=== PATIENT | female | born 1955 | race Caucasian/White ===

== ENCOUNTER → 2017-02-23 | Outpatient (CLI) | payer BC ==
--- NOTE | 2017-02-23 15:12 | BD ---
EXAMINATION TYPE: MG DEXA axial skeleton. DATE OF EXAM: 02/23/2017 COMPARISON: 02/19/2015 DEXA bone scan CLINICAL HISTORY: Postmenopausal female Height: 66 IN Weight: 224 LBS FRAX RISK QUESTIONS: Alcohol (3 or more units per day): NO Family History (Parent hip fracture): NO Glucocorticoids (More than 3mos): NO (Ex: prednisone, prednisolone, methylprednisolone, dexamethasone, and hydrocortisone). History of Fracture in Adulthood: NO Secondary Osteoporosis: 1. Type 1 Diabetes: NO 2. Hyperthyroidism: NO 3. Menopause before 45: NO 4. Malnutrition: NO 5. Chronic liver disease: NO Rheumatoid Arthritis: NO Current Tobacco Use: NO RISK FACTORS HISTORY OF: Family History of Osteoporosis: GRANDMOTHER (M) Active: YES Postmenopausal woman: AGE 46 MEDICATIONS: Additional Medications: VIT D, EXAM MEASUREMENTS: Bone mineral densitometry was performed using the [employer] System. Bone mineral density as measured about the Lumbar spine is: ----- L1-L4(G/cm2): 1.071 T Score Values are as follows: ----- L2: -1.0 ----- L3: -0.3 ----- L4: -1.3 ----- L1-L4: -0.9 Bone mineral density has: Increased 0.2% since study of: 02/19/2015 Bone mineral density about the R hip (g/cm2): 0.921 Bone mineral density about the L hip (g/cm2): 0.840 T Score values are as follows: -----R Neck: -0.8 -----L Neck: -1.4 -----R Total: -0.5 -----L Total: -0.8 Bone mineral density has: Increased 2.4% since study of: 02/19/2015 IMPRESSION: Osteopenia (T Score between -2.5 and -1 as noted by T score values at the femoral neck level in the l eft hip remains present. Bone density fairly stable from prior. There remains slightly increased risk of fracture and the patient may be considered for treatment. Re-Screen 2-5 years. NOTE: T-SCORE=SD OF THE YOUNG ADULT MEAN.
--- NOTE | 2017-02-24 13:49 | MM ---
Reason for exam: screening (asymptomatic). Last mammogram was performed 1 year ago. History: Patient is postmenopausal and has history of other cancer at age 26. Family history of breast cancer in sister at age 43 and breast cancer in maternal grandmother at age 44. Benign left mammotome panel of the left breast, November 19, 2011. Physical Findings: A clinical breast exam by your physician is recommended on an annual basis and results should be correlated with mammographic findings. MG 3D Screening Mammo W/Cad Bilateral CC and MLO view(s) were taken. Prior study comparison: February 23, 2016, bilateral MG 3d screening mammo w/cad. February 19, 2015, bilateral MG screening mammo w CAD. The breast tissue is heterogeneously dense. This may lower the sensitivity of mammography. No suspicious abnormality. ASSESSMENT: Negative, BI-RAD 1 RECOMMENDATION: Routine screening mammogram of both breasts in 1 year.
== END | disposition home or self-care (01) ==
LOC: RADMAMWWP 13:54
PROVIDERS: ATTEND Family Medicine
DX: Z12.31 Encounter for screening mammogram for malignant neoplasm of breast (principal); M85.852 Other specified disorders of bone density and structure, left thigh; Z78.0 Asymptomatic menopausal state
CPT/HCPCS: 77080; 77063; G0202

== ENCOUNTER 2017-11-20 11:54 | Emergency (ER) | payer BC ==
[2017-11-20] MEDS ORDERED: ONDANSETRON 4 MG/2 ML VIAL IVP STA (12:12)
[2017-11-20] MEDS ORDERED: SODIUM CHLORIDE 0.9% 1,000 ML IV STA (12:12)
[2017-11-20] MEDS ORDERED: ACETAMINOPHEN IV (For NPO) 1,000 MG in EMPTY BAG 1 BAG IVPB STA (12:14)
[2017-11-20] MEDS ORDERED: FAMOTIDINE 20 MG/2 ML VIAL IV STA (12:14)
--- NOTE | 2017-11-20 12:15 | ED ---
General Adult HPI - General Chief complaint: Abdominal Pain Stated complaint: Abd Pain Time Seen by Provider: 11/20/17 12:04 Source: patient, RN notes reviewed Mode of arrival: ambulatory Limitations: no limitations - History of Present Illness Initial comments: Patient 62-year-old female presented to the emergency room today with a chief complaint of abdominal pain and diarrhea over the last 4 days. Patient does admit that she seems looser stools. No appearance earlier today. Patient does admit to feeling some epigastric and upper abdomen pain. Denies that makes it better or worse. Does admit that she's had symptoms of nausea. Patient denies any other complaints. Patient denies any recent fever, chills, shortness of breath, chest pain, back pain, abdominal pain, vomiting, numbness or tingling, headaches or visual changes, or any other complaints. - Related Data Previous Rx's Medication Instructions Recorded Ondansetron Odt [Zofran ODT] 4 mg PO Q8HR PRN #20 tab 11/20/17 Allergies Allergy/AdvReac Type Severity Reaction Status Date / Time pseudoephedrine Allergy Unknown Verified 11/20/17 12:02 Review of Systems ROS Statement: Those systems with pertinent positive or pertinent negative responses have been documented in the HPI. ROS Other: All systems not noted in ROS Statement are negative. Past Medical History Past Medical History: No Reported History History of Any Multi-Drug Resistant Organisms: None Reported Past Surgical History: Hysterectomy, Orthopedic Surgery, Tubal Ligation Past Psychological History: Depression Smoking Status: Never smoker Past Alcohol Use History: Occasional Past Drug Use History: None Reported General Exam - General Exam Comments Initial Comments: General: The patient is awake and alert, in no distress, and does not appear acutely ill. Eye: Pupils are equal, round and reactive to light, extra-ocular movements are intact. No nystagmus. There is normal conjunctiva bilaterally. No signs of icterus. Ears, nose, mouth and throat: There are moist mucous membranes and no oral lesions. Neck: The neck is supple, there is no tenderness or JVD. Cardiovascular: There is a regular rate and rhythm. No murmur, rub or gallop is appreciated. Respiratory: Lungs are clear to auscultation, respirations are non-labored, breath sounds are equal. No wheezes, stridor, rales, or rhonchi. Gastrointestinal: Abdomen soft on palpation. Patient does have tenderness in the upper quadrants and epigastric area. No rebound, guarding or CVA tenderness. Musculoskeletal: Normal ROM, no tenderness. Sensation intact. Neurological: A&O x 3. CN II-XII intact, There are no obvious motor or sensory deficits. Coordination appears grossly intact. Speech is normal. Skin: Skin is warm and dry and no rashes or lesions are noted. Psychiatric: Cooperative, appropriate mood & affect, normal judgment. Limitations: no limitations Course Vital Signs 11/20/17 11/20/17 11:59 14:10 Temperature 98.4 F Pulse Rate 77 60 Respiratory 16 18 Rate Blood Pressure 160/94 156/78 O2 Sat by Pulse 97 97 Oximetry EKG Findings - EKG Comments: EKG Findings:: EKG performed at 1446: Shows normal sinus rhythm at 62 beats per minute. MO interval 154. QRS is 78. QT/QTc 404/410. No acute changes. Medical Decision Making - Medical Decision Making Patient's labs been reviewed. Patient's resting comfortably. Patient's symptoms started 4 days ago. She does note improvement after Pepcid, Zofran here in the emergency room. She was given GI cocktail which is progressive her symptoms. She is resting comfortably at this time. Patient is advised follow- up with her GI specialist and also family physician. Advised return here to emergency room if any symptoms increase worsen. She was advised continue with her proton accident Pepcid. Will be given Zofran to go home with. - Lab Data Result diagrams: 11/20/17 12:20 11/20/17 12:20 Lab Results 11/20/17 11/20/17 11/20/17 Range/Units 12:20 12:20 12:20 WBC 5.0 (3.8-10.6) k/uL RBC 5.13 (3.80-5.40) m/uL Hgb 14.5 (11.4-16.0) gm/dL Hct 43.6 (34.0-46.0) % MCV 84.9 (80.0-100.0) fL MCH 28.3 (25.0-35.0) pg MCHC 33.4 (31.0-37.0) g/dL RDW 13.5 (11.5-15.5) % Plt Count 239 (150-450) k/uL Neutrophils % 79 % Lymphocytes % 16 % Monocytes % 4 % Eosinophils % 0 % Basophils % 1 % Neutrophils # 3.9 (1.3-7.7) k/uL Lymphocytes # 0.8 L (1.0-4.8) k/uL Monocytes # 0.2 (0-1.0) k/uL Eosinophils # 0.0 (0-0.7) k/uL Basophils # 0.0 (0-0.2) k/uL Sodium 142 (137-145) mmol/L Potassium 3.9 (3.5-5.1) mmol/L Chloride 109 H (98-107) mmol/L Carbon Dioxide 24 (22-30) mmol/L Anion Gap 9 mmol/L BUN 10 (7-17) mg/dL Creatinine 0.56 (0.52-1.04) mg/dL Est GFR (CKD-EPI)AfAm >90 (>60 ml/min/1.73 sqM) Est GFR (CKD-EPI)NonAf >90 (>60 ml/min/1.73 sqM) Glucose 104 H (74-99) mg/dL Calcium 9.8 (8.4-10.2) mg/dL Total Bilirubin 0.5 (0.2-1.3) mg/dL AST 19 (14-36) U/L ALT 30 (9-52) U/L Alkaline Phosphatase 80 (38-126) U/L Total Creatine Kinase (30-135) U/L CK-MB (CK-2) (0.0-2.4) ng/mL CK-MB (CK-2) Rel Index Troponin I (0.000-0.034) ng/mL Total Protein 6.7 (6.3-8.2) g/dL Albumin 4.5 (3.5-5.0) g/dL Amylase 45 (30-110) U/L Lipase 53 (23-300) U/L Urine Color Colorless Urine Appearance Clear (Clear) Urine pH 6.0 (5.0-8.0) Ur Specific [place] 1.002 (1.001-1.035) Urine Protein Negative (Negative) Urine Glucose (UA) Negative (Negative) Urine Ketones Negative (Negative) Urine Blood Negative (Negative) Urine Nitrite Negative (Negative) Urine Bilirubin Negative (Negative) Urine Urobilinogen <2.0 (<2.0) mg/dL Ur Leukocyte Esterase Negative (Negative) 11/20/17 Range/Units 12:20 WBC (3.8-10.6) k/uL RBC (3.80-5.40) m/uL Hgb (11.4-16.0) gm/dL Hct (34.0-46.0) % MCV (80.0-100.0) fL MCH (25.0-35.0) pg MCHC (31.0-37.0) g/dL RDW (11.5-15.5) % Plt Count (150-450) k/uL Neutrophils % % Lymphocytes % % Monocytes % % Eosinophils % % Basophils % % Neutrophils # (1.3-7.7) k/uL Lymphocytes # (1.0-4.8) k/uL Monocytes # (0-1.0) k/uL Eosinophils # (0-0.7) k/uL Basophils # (0-0.2) k/uL Sodium (137-145) mmol/L Potassium (3.5-5.1) mmol/L Chloride (98-107) mmol/L Carbon Dioxide (22-30) mmol/L Anion Gap mmol/L BUN (7-17) mg/dL Creatinine (0.52-1.04) mg/dL Est GFR (CKD-EPI)AfAm (>60 ml/min/1.73 sqM) Est GFR (CKD-EPI)NonAf (>60 ml/min/1.73 sqM) Glucose (74-99) mg/dL Calcium (8.4-10.2) mg/dL Total Bilirubin (0.2-1.3) mg/dL AST (14-36) U/L ALT (9-52) U/L Alkaline Phosphatase (38-126) U/L Total Creatine Kinase 34 (30-135) U/L CK-MB (CK-2) 0.6 (0.0-2.4) ng/mL CK-MB (CK-2) Rel Index 1.8 Troponin I <0.012 (0.000-0.034) ng/mL Total Protein (6.3-8.2) g/dL Albumin (3.5-5.0) g/dL Amylase (30-110) U/L Lipase (23-300) U/L Urine Color Urine Appearance (Clear) Urine pH (5.0-8.0) Ur Specific [place] (1.001-1.035) Urine Protein (Negative) Urine Glucose (UA) (Negative) Urine Ketones (Negative) Urine Blood (Negative) Urine Nitrite (Negative) Urine Bilirubin (Negative) Urine Urobilinogen (<2.0) mg/dL Ur Leukocyte Esterase (Negative) Disposition Clinical Impression: Abdominal pain Disposition: HOME SELF-CARE Condition: Good Instructions: Abdominal Pain (ED) Additional Instructions: Please follow-up the family doctor and GI specialist over the next 2-5 days. Please use medications as discussed return here to emergency room if any symptoms increase or worsen. Prescriptions: Ondansetron Odt [Zofran ODT] 4 mg PO Q8HR PRN #20 tab PRN Reason: Nausea Is patient prescribed a controlled substance at d/c from ED?: No Referrals: Charanjit New MD [Primary Care Provider] - 1-2 days Kacy Montgomery MD [STAFF PHYSICIAN] - 1-2 days Time of Disposition: 15:15
[2017-11-20 12:45] LABS: ALT 30 U/L (9-52); AST 19 U/L (14-36); Albumin 4.5 g/dL (3.5-5.0); Alkaline Phosphatase 80 U/L (38-126); Amylase 45 U/L (30-110); Anion Gap 9 mmol/L; Appearance,Urine Clear (Clear); Bilirubin,Urine Negative (Negative); Blood Urea Nitrogen 10 mg/dL (7-17); Blood,Urine Negative (Negative); Calcium 9.8 mg/dL (8.4-10.2); Carbon Dioxide 24 mmol/L (22-30); Chloride 109 mmol/L (98-107); Color,Urine Colorless; Glucose 104 mg/dL (74-99); Glucose,Urine (UA) Negative (Negative); Ketones,Urine Negative (Negative); Leukocyte Esterase,Urine Negative (Negative); Lipase 53 U/L (23-300); Nitrite,Urine Negative (Negative); Potassium 3.9 mmol/L (3.5-5.1); Protein,Urine Negative (Negative); Sodium 142 mmol/L (137-145); Specific Gravity,Urine 1.002 (1.001-1.035); Total Bilirubin 0.5 mg/dL (0.2-1.3); Total Protein 6.7 g/dL (6.3-8.2); Urobilinogen,Urine <2.0 mg/dL (<2.0)
[2017-11-20 12:51] LABS: Basophils % (A) 1 %; Eosinophils % (A) 0 %; HCT 43.6 % (34.0-46.0); HGB 14.5 gm/dL (11.4-16.0); Lymphocytes # (A) 0.8 k/uL (1.0-4.8); Lymphocytes % (A) 16 %; MCH 28.3 pg (25.0-35.0); MCHC 33.4 g/dL (31.0-37.0); MCV 84.9 fL (80.0-100.0); Mean Platelet Volume 6.8; Monocytes # (A) 0.2 k/uL (0-1.0); Monocytes % (A) 4 %; Neutrophils # (A) 3.9 k/uL (1.3-7.7); Neutrophils % (A) 79 %; Platelet Count 239 k/uL (150-450); RBC 5.13 m/uL (3.80-5.40); RDW 13.5 % (11.5-15.5)
--- NOTE | 2017-11-20 13:31 | US ---
EXAMINATION TYPE: US abdomen limited DATE OF EXAM: 11/20/2017 COMPARISON: Previous study dated 12/03/2015. CLINICAL HISTORY: Pain. Epigastric pain and nausea x 4 days EXAM MEASUREMENTS: Liver Length: 13.3 cm Gallbladder Wall: 0.2 cm CBD: 0.4 cm Right Kidney: 9.7 x 5.2 x 4.8 cm Pancreas: visualized portions wnl, limited by overlying midline bowel gas Liver: wnl Gallbladder: wnl Evidence for sonographic Espinosa's sign: yes CBD: visualized portions wnl, limited by overlying bowel gas Right Kidney: wnl Limited views of the pancreas are unremarkable. The liver is normal in size without biliary dilatation. The gallbladder is unremarkable without cholelithiasis. The gallbladder wall measures 2 mm. The dista l common hepatic duct measures 4 mm. There is right upper quadrant tenderness. The right kidney is normal. IMPRESSION: RIGHT UPPER QUADRANT TENDERNESS WITHOUT OTHER DEFINITE ABNORMALITY.
[2017-11-20 13:39] LABS: Creatine Kinase 34 U/L (30-135)
[2017-11-20 13:52] LABS: Creatine Kinase MB 0.6 ng/mL (0.0-2.4); Troponin I <0.012 ng/mL (0.000-0.034)
[2017-11-20] MEDS ORDERED: MAG HYDROX/AL HYDROX/SIMETH 30 ML, HYOSCYAMINE ELIXIR 10 ML, CIMETIDINE HCL 300 MG, LID... PO STA ×4 (14:00)
[2017-11-20] MEDS ORDERED: KETOROLAC 30 MG/ML 1 ML VIAL IVP STA (15:28)
[2017-11-20 15:31] VITALS: BP 133/76; PULSE 55; RESP 18; TEMP 98
== END 2017-11-20 15:39 | disposition home or self-care (01) ==
LOC: EC 11:54
DX: R10.13 Epigastric pain (principal); R19.7 Diarrhea, unspecified; R11.0 Nausea; Z90.710 Acquired absence of both cervix and uterus; Z98.51 Tubal ligation status; Z88.8 Allergy status to other drugs, medicaments and biological substances
CPT/HCPCS: 36415; 93005; 80053; 82150; 82550; 82553; 83690; 84484; 85025; 81003; 76705; 99284; 96374; 96375 ×3; 96361 ×3; J2405; J1885; J0131

== ENCOUNTER 2017-11-22 12:07 | Emergency (ER) | payer BC ==
[2017-11-22] MEDS ORDERED: MAG HYDROX/AL HYDROX/SIMETH 30 ML, HYOSCYAMINE ELIXIR 10 ML, CIMETIDINE HCL 300 MG, LID... PO STA ×4 (12:36)
--- NOTE | 2017-11-22 12:38 | ED ---
General Adult HPI - General Chief complaint: Abdominal Pain Stated complaint: upper abdominal pain/burning Time Seen by Provider: 11/22/17 12:24 Source: patient, RN notes reviewed Mode of arrival: ambulatory Limitations: no limitations - History of Present Illness Initial comments: Patient's a 62-year-old female presented to the emergency room today with a chief complaint of abdominal pain. Patient was seen here in the emergency room recently for the same complaint this 2 days ago. Patient did have labs and an ultrasound obtained. Patient states that she felt better after receiving a GI cocktail here in the emergency room. She states she went home and for the past few days she's been taking comments. She states she was doing well until when she woke up this morning she had increased pain to the epigastric area. Patient does admit to some radiation into the chest. Patient denies any other complaints or symptoms. She states these are the same symptoms she is experiencing 2 days ago. Patient denies any recent fever, chills, shortness of breath, chest pain, back pain, abdominal pain, nausea or vomiting, numbness or tingling, headaches or visual changes, or any other complaints. - Related Data Home Medications Medication Instructions Recorded Confirmed Diazepam [Valium] 5 mg PO DAILY PRN 11/22/17 11/22/17 Famotidine [Pepcid AC] 10 mg PO DAILY PRN 11/22/17 11/22/17 Pantoprazole Sodium [Protonix] 40 mg PO DAILY PRN 11/22/17 11/22/17 Previous Rx's Medication Instructions Recorded Ondansetron Odt [Zofran ODT] 4 mg PO Q8HR PRN #20 tab 11/20/17 ALPRAZolam [Xanax] 0.5 mg PO BID PRN #10 tablet 11/22/17 Sucralfate [Carafate] 1 gm PO BID #10 tablet 11/22/17 Allergies Allergy/AdvReac Type Severity Reaction Status Date / Time pseudoephedrine Allergy Unknown Verified 11/22/17 12:27 Review of Systems ROS Statement: Those systems with pertinent positive or pertinent negative responses have been documented in the HPI. ROS Other: All systems not noted in ROS Statement are negative. Past Medical History Past Medical History: GERD/Reflux Additional Past Medical History / Comment(s): sliding hiatal hernia History of Any Multi-Drug Resistant Organisms: None Reported Past Surgical History: Hysterectomy, Orthopedic Surgery, Tubal Ligation Past Psychological History: Depression Smoking Status: Never smoker Past Alcohol Use History: Occasional Past Drug Use History: None Reported General Exam - General Exam Comments Initial Comments: General: The patient is awake and alert, in no distress, and does not appear acutely ill. Eye: Pupils are equal, round and reactive to light, extra-ocular movements are intact. No nystagmus. There is normal conjunctiva bilaterally. No signs of icterus. Ears, nose, mouth and throat: There are moist mucous membranes and no oral lesions. Neck: The neck is supple, there is no tenderness or JVD. Cardiovascular: There is a regular rate and rhythm. No murmur, rub or gallop is appreciated. Respiratory: Lungs are clear to auscultation, respirations are non-labored, breath sounds are equal. No wheezes, stridor, rales, or rhonchi. Gastrointestinal: Abdomen soft on palpation. Patient does have tenderness epigastric and right upper quadrants. No rebound, guarding, or CVA tenderness. Musculoskeletal: Normal ROM, no tenderness. Strength 5/5. Sensation intact. Pulses equal bilaterally 2+. Neurological: A&O x 3. CN II-XII intact, There are no obvious motor or sensory deficits. Coordination appears grossly intact. Speech is normal. Skin: Skin is warm and dry and no rashes or lesions are noted. Psychiatric: Cooperative, appropriate mood & affect, normal judgment. Limitations: no limitations Course Vital Signs 11/22/17 12:18 Temperature 98.4 F Pulse Rate 75 Respiratory 16 Rate O2 Sat by Pulse 95 Oximetry EKG Findings - EKG Comments: EKG Findings:: EKG performed at 1317: Shows normal sinus rhythm at 69 bpm. ND interval 152. QRS 76. QT/QTC 380/407. No acute changes compared to previous EKG on 11/20/2017. Medical Decision Making - Medical Decision Making Case discussed in detail with attending physician Dr. Bethea. Patient reexamined at this time shows no signs of distress resting comfortably. Patient's previous labs from 2 days ago are reviewed and were negative for any abnormality. EKG is compared to previous EKG showing no changes. Patient has pain in epigastric and is tender in this area with some burning sensation going up. Patient did have some relief with a GI cocktail and given Tylenol Pepcid here in emergency room. Patient does have history anxiety is requesting medication due to increased anxiety due to these pains per se she has a appointment with her family doctor in 2 days. Patient will be given a short prescription. She is advised to follow-up with family doctor over the next 2 days return to emergency room symptoms increase worsen. Disposition Clinical Impression: Abdominal pain Disposition: HOME SELF-CARE Condition: Good Instructions: Abdominal Pain (ED) Additional Instructions: Please use medication as discussed. Please follow-up with family doctor in the next 2 days. Please return to emergency room if the symptoms increase or worsen or for any other concerns. Prescriptions: ALPRAZolam [Xanax] 0.5 mg PO BID PRN #10 tablet PRN Reason: Anxiety Sucralfate [Carafate] 1 gm PO BID #10 tablet Is patient prescribed a controlled substance at d/c from ED?: No Referrals: Charanjit New MD [Primary Care Provider] - 1-2 days Time of Disposition: 13:52
[2017-11-22] MEDS ORDERED: FAMOTIDINE 20 MG TAB PO STA (13:46)
[2017-11-22] MEDS ORDERED: ACETAMINOPHEN TAB 500 MG TAB PO STA (13:46)
[2017-11-22] MEDS ORDERED: ALPRAZolam 0.5 MG TAB PO STA (13:46)
[2017-11-22 14:02] VITALS: BP 150/75; PULSE 69; RESP 18; TEMP 97.8
== END 2017-11-22 14:02 | disposition home or self-care (01) ==
LOC: EC 12:07
DX: R10.13 Epigastric pain (principal); F41.9 Anxiety disorder, unspecified; Z88.8 Allergy status to other drugs, medicaments and biological substances
CPT/HCPCS: 93005; 99284

== ENCOUNTER → 2017-11-30 | Outpatient (CLI) | payer BC ==
--- NOTE | 2017-12-01 08:30 | NM ---
Nuclear medicine hepatobiliary scan. HISTORY: Pain. DOSAGE: The patient received 8 ounces of ensure plus and 5 mCi of Technetium 99m Choletec. FINDINGS: There is normal hepatic extraction. The gallbladder is seen by 20 minutes. There is bilia ry to bowel clearance by 55 minutes. Ejection fraction is 80%. IMPRESSION: 1. No evidence to suggest cholecystitis. 2. Ejection fraction 80%.
== END | disposition home or self-care (01) ==
LOC: RADNMMAIN 15:04
PROVIDERS: ATTEND Family Medicine
DX: R10.11 Right upper quadrant pain (principal); R07.9 Chest pain, unspecified; Z88.8 Allergy status to other drugs, medicaments and biological substances
CPT/HCPCS: 78226; A9537

== ENCOUNTER 2017-12-21 07:17 | Day surgery (SDC) | payer BC ==
[2017-12-19 11:28] VITALS: BMI 34.7
[~2017-12-21 07:17] MED LIST: LACTATED RINGERS 1,000 ML IV SCH
[2017-12-21] MEDS ORDERED: LIDOCAINE 1% 20 ML VIAL (10MG/ML) FOR IV START INTRADERMA ONE (07:42)
[2017-12-21 07:44] VITALS: TEMP 98.4
[2017-12-21] MEDS ORDERED: PROPOFOL 10 MG/ML 20 ML VIAL IV ONE (08:33)
--- NOTE | 2017-12-21 08:42 | P.PCN ---
Date of Procedure: 12/21/17 Procedure(s) Performed: BRIEF HISTORY: Patient is a 62-year-old, pleasant, white female, scheduled for an upper endoscopy as a part of evaluation of chronic epigastric pain for the last several years duration. However for the last 2 months the patient has been progressively getting worse. She has been on Protonix 40 mg daily and denies any heartburn.. PROCEDURE PERFORMED: Esophagogastroduodenoscopy with biopsy. PREOPERATIVE DIAGNOSIS: Chronic epigastric pain/GERD. IV sedation per anesthesia. PROCEDURE: After informed consent was obtained, the patient was brought into the endoscopy unit. IV sedation was administered by Anesthesia under continuous monitoring. Initially the Olympus GIF-140 video endoscope was inserted into the mouth. Esophagus intubated without any difficulty. It was gradually advanced into the stomach and duodenum and carefully examined. The bulb and the second part of the duodenum appeared normal. Biopsies were done from this area to rule out celiac disease. The scope at this time was withdrawn to the stomach, adequately insufflated with air, and upon careful examination, mucosa of the antrum, patchy areas of erythema in the prepyloric area and biopsies were done from this area. The body, cardia and the fundus appeared normal. The scope was then withdrawn into the esophagus. The GE junction was located at 39 cm from the incisors. Small sliding Hiatal hernia noted. The esophagus appeared normal. There were no erosions or ulcerations seen, no evidence of Borrero's esophagus and the patient tolerated the procedure well. IMPRESSION: 1. Small hiatal hernia but no evidence of esophagitis or Borrero's esophagus. 2. Mild antral gastritis. RECOMMENDATIONS: The findings of this examination were discussed with the patient as well as a family. She was advised to follow with the biopsy results. She will continue with Protonix 40 mg daily as well as amitriptyline 10 mg at bedtime and follow antireflux measures.
[2017-12-21 09:09] VITALS: BP 144/80; PULSE 64; RESP 16
== END 2017-12-21 09:26 | disposition home or self-care (01) ==
LOC: ORWHC2ENDO 07:17
PROVIDERS: ATTEND Internal Medicine Gastroenterology
DX: K44.9 Diaphragmatic hernia without obstruction or gangrene (principal); K29.50 Unspecified chronic gastritis without bleeding; K21.0 Gastro-esophageal reflux disease with esophagitis; Z79.899 Other long term (current) drug therapy; Z88.8 Allergy status to other drugs, medicaments and biological substances
CPT/HCPCS: 88305; 43239; J2704

== ENCOUNTER → 2017-12-22 | Outpatient (CLI) | payer BC ==
--- NOTE | 2017-12-22 13:40 | ECHOS ---
STRESS ECHOCARDIOGRAM DATE OF SERVICE: 12/22/2017 INDICATIONS: Chest pain. MEDICATIONS: BASELINE HEART RATE: 78 BASELINE BLOOD PRESSURE: 123/61 MAXIMUM HEART RATE: 140 MAXIMUM BLOOD PRESSURE: 158/100 85% MPHR: 134 100% MPHR: 158 METS: 7.9 MAXIMUM STAGE REACHED: II TOTAL EXERCISE TIME: 6 minutes 30 seconds CLINICAL INFORMATION: Patient was exercised for a total period of 6 minutes and 30 seconds. Peak heart rate of 140 was achieved. Maximum blood pressure 158/100 mmHg was noted. Resting EKG shows normal sinus rhythm with normal OK interval and QRS duration and normal ST-T waves. No ST-segment depression suggestive of ischemia is noted. The baseline echocardiographic images reveal a normal left ventricular chamber size with normal left ventricular systolic function. In the immediate postexercise, normal increase in the wall thickness and contractility is noted. FINAL IMPRESSION: This stress echocardiographic study is negative for stress-induced ischemia. EKG portion of the stress is not suggestive of ischemia. Occasional PVCs and ventricular couplets were noted. MMODL / IJN: [id number] /
== END | disposition home or self-care (01) ==
LOC: RADNMMAIN 09:01
PROVIDERS: ATTEND Family Medicine
DX: I49.3 Ventricular premature depolarization (principal); R00.8 Other abnormalities of heart beat
CPT/HCPCS: 93351; Q9950

== ENCOUNTER 2018-04-09 14:04 | Emergency (ER) | payer BC ==
[2018-04-09 14:24] VITALS: RESP 18
[2018-04-09] MEDS ORDERED: diphenhydrAMINE 50 MG/ML 1 ML VIAL IVP STA (15:21)
[2018-04-09] MEDS ORDERED: KETOROLAC 30 MG/ML 1 ML VIAL IVP STA (15:21)
[2018-04-09] MEDS ORDERED: METOCLOPRAMIDE 5 MG/ML 2 ML VIAL IVP STA (15:21)
[2018-04-09] MEDS ORDERED: SODIUM CHLORIDE 0.9% 1,000 ML IV STA (15:21)
--- NOTE | 2018-04-09 15:49 | ED ---
Headache HPI - General Chief Complaint: Headache Stated Complaint: Headache Time Seen by Provider: 04/09/18 15:14 Mode of arrival: ambulatory Limitations: no limitations - History of Present Illness Initial Comments: 62-year-old female patient presents to the emergency department today for evaluation of headache 6 weeks. Patient states that initially her physician thought it was related to sinusitis and she was treated with steroids and nasal spray. Patient states she did complete the steroids and has been using nasal spray but her headache has persisted. Patient states most recently the headache has been constant all day everyday. She states the pain is all over her head. States a week ago she did have double vision with the image stacked one on top of the other. States it was in both eyes. She denies any fevers or chills with this. States that she is having some tingling to her bilateral feet today. She denies any weakness in her arms or legs. Denies any history of headache or migraine. Patient denies any recent rash, fever, chills, shortness breath, chest pain, abdominal pain, nausea, vomiting, diarrhea, constipation, back pain, hematuria, dysuria, urinary urgency, urinary frequency , or any other complaints. - Related Data Home Medications Medication Instructions Recorded Confirmed Pantoprazole Sodium [Protonix] 40 mg PO DAILY PRN 11/22/17 04/09/18 Sucralfate [Carafate] 1 gm PO DAILY PRN 04/09/18 04/09/18 traMADol HCL [Ultram] 50 mg PO Q4HR PRN 04/09/18 04/09/18 Previous Rx's Medication Instructions Recorded Cyclobenzaprine [Flexeril] 10 mg PO TID #15 tab 04/09/18 Allergies Allergy/AdvReac Type Severity Reaction Status Date / Time pseudoephedrine Allergy Unknown Verified 04/09/18 15:11 Review of Systems ROS Statement: Those systems with pertinent positive or pertinent negative responses have been documented in the HPI. ROS Other: All systems not noted in ROS Statement are negative. Past Medical History Past Medical History: GERD/Reflux Additional Past Medical History / Comment(s): hiatal hernia History of Any Multi-Drug Resistant Organisms: None Reported Past Surgical History: Hysterectomy, Orthopedic Surgery, Tubal Ligation Additional Past Surgical History / Comment(s): Rotator cuff repair; Colonoscopy ; EGD Past Anesthesia/Blood Transfusion Reactions: No Reported Reaction Past Psychological History: Anxiety, Depression Smoking Status: Never smoker Past Alcohol Use History: Rare Past Drug Use History: None Reported - Past Family History Mother Family Medical History: No Reported History General Exam Limitations: no limitations General appearance: alert, in no apparent distress, other (Physical well- developed, well-nourished adult female patient in no acute distress. Vital signs upon presentation are temperature 98.1F, pulse 78, respirations 18, blood pressure 151/87, pulse ox 99% on room air.) Eye exam: Present: normal appearance, PERRL, EOMI. Absent: scleral icterus, conjunctival injection, periorbital swelling ENT exam: Present: normal exam, normal oropharynx, mucous membranes moist Respiratory exam: Present: normal lung sounds bilaterally. Absent: respiratory distress, wheezes, rales, rhonchi, stridor Cardiovascular Exam: Present: regular rate, normal rhythm, normal heart sounds. Absent: systolic murmur, diastolic murmur, rubs, gallop, clicks GI/Abdominal exam: Present: soft, normal bowel sounds. Absent: distended, tenderness, guarding, rebound, rigid Neurological exam: Present: alert, oriented X3, CN II-XII intact Expanded Cranial nerves: EOM's Intact: Normal, Tongue Deviation: Normal Cerebellar function: Finger to Nose: Normal Motor strength exam: RUE: 5, LUE: 5, RLE: 5, LLE: 5 Psychiatric exam: Present: normal affect, normal mood Skin exam: Present: warm, dry, intact, normal color. Absent: rash Course Vital Signs 04/09/18 04/09/18 14:21 17:55 Temperature 98.1 F Pulse Rate 78 86 Respiratory 18 18 Rate Blood Pressure 151/87 147/85 O2 Sat by Pulse 99 98 Oximetry Medical Decision Making - Medical Decision Making 62-year-old female patient presents to the emergency department today for evaluation of headache 6 weeks. Physical examination is unremarkable. She is neurologically intact no focal deficits. Labs reviewed and are unremarkable. CT brain and sinuses was performed and showed no acute abdomen ALLERGIES. My attending Dr. Duron did perform lumbar puncture to rule out subarachnoid hemorrhage. This test result was negative. No presence of RBCs or xanthochromia. Did discuss findings and results with the patient. She'll be discharged home to follow-up with neurology for recheck as soon as possible. She is instructed to discuss MRI. Return parameters were discussed in detail. She verbalizes understanding and agrees with this plan. - Lab Data Result diagrams: 04/09/18 15:38 04/09/18 15:38 Lab Results 04/09/18 04/09/18 04/09/18 Range/Units 15:38 15:38 18:20 WBC 6.5 (3.8-10.6) k/uL RBC 5.25 (3.80-5.40) m/uL Hgb 14.6 (11.4-16.0) gm/dL Hct 46.1 H (34.0-46.0) % MCV 87.9 (80.0-100.0) fL MCH 27.8 (25.0-35.0) pg MCHC 31.6 (31.0-37.0) g/dL RDW 14.1 (11.5-15.5) % Plt Count 289 (150-450) k/uL Neutrophils % 86 % Lymphocytes % 9 % Monocytes % 4 % Eosinophils % 1 % Basophils % 0 % Neutrophils # 5.6 (1.3-7.7) k/uL Lymphocytes # 0.6 L (1.0-4.8) k/uL Monocytes # 0.2 (0-1.0) k/uL Eosinophils # 0.1 (0-0.7) k/uL Basophils # 0.0 (0-0.2) k/uL Sodium 138 (137-145) mmol/L Potassium 4.4 (3.5-5.1) mmol/L Chloride 103 (98-107) mmol/L Carbon Dioxide 26 (22-30) mmol/L Anion Gap 9 mmol/L BUN 21 H (7-17) mg/dL Creatinine 0.46 L (0.52-1.04) mg/dL Est GFR (CKD-EPI)AfAm >90 (>60 ml/min/1.73 sqM) Est GFR (CKD-EPI)NonAf >90 (>60 ml/min/1.73 sqM) Glucose 108 H (74-99) mg/dL Calcium 10.1 (8.4-10.2) mg/dL Total Bilirubin 0.6 (0.2-1.3) mg/dL AST 26 (14-36) U/L ALT 56 H (9-52) U/L Alkaline Phosphatase 84 (38-126) U/L Total Protein 7.6 (6.3-8.2) g/dL Albumin 4.8 (3.5-5.0) g/dL CSF Tube Number 4 CSF Volume 2.0 CSF Appearance Clear CSF Color Colorless CSF RBC 1 (0-10) u/L CSF Tot Nucleated Cells 0 (0-5) u/L CSF Glucose 64 (40-70) mg/dL CSF Total Protein 43 (12-60) mg/dL - Radiology Data Radiology results: report reviewed, image reviewed CT of the sinuses performed without contrast. Report was reviewed in its entirety. Impression by Dr. Amos shows normal computed tomography scan of the paranasal sinuses. No evidence of sinusitis. CT brain without contrast was performed. Report was reviewed in its entirety. Impression by Dr. Amos shows negative computed tomography scan of the brain. Disposition Clinical Impression: Headache Disposition: HOME SELF-CARE Condition: Good Instructions: Acute Headache (ED) Additional Instructions: Follow-up with neurologist for further evaluation and possible MRI. Increase fluids. Stop her primary care physician for recheck as soon as possible. Return immediately for any new, worsening, or concerning symptoms Prescriptions: Cyclobenzaprine [Flexeril] 10 mg PO TID #15 tab Is patient prescribed a controlled substance at d/c from ED?: No Referrals: Charanjit New MD [Primary Care Provider] - 1-2 days Lucy Nevarez MD [STAFF PHYSICIAN] - 1-2 days Time of Disposition: 19:53
[2018-04-09 15:57] LABS: Basophils % (A) 0 %; Eosinophils # (A) 0.1 k/uL (0-0.7); Eosinophils % (A) 1 %; HCT 46.1 % (34.0-46.0); HGB 14.6 gm/dL (11.4-16.0); Lymphocytes # (A) 0.6 k/uL (1.0-4.8); Lymphocytes % (A) 9 %; MCH 27.8 pg (25.0-35.0); MCHC 31.6 g/dL (31.0-37.0); MCV 87.9 fL (80.0-100.0); Mean Platelet Volume 6.5; Monocytes # (A) 0.2 k/uL (0-1.0); Monocytes % (A) 4 %; Neutrophils # (A) 5.6 k/uL (1.3-7.7); Neutrophils % (A) 86 %; Platelet Count 289 k/uL (150-450); RBC 5.25 m/uL (3.80-5.40); RDW 14.1 % (11.5-15.5); WBC 6.5 k/uL (3.8-10.6)
[2018-04-09 16:04] LABS: ALT 56 U/L (9-52); AST 26 U/L (14-36); Albumin 4.8 g/dL (3.5-5.0); Alkaline Phosphatase 84 U/L (38-126); Anion Gap 9 mmol/L; Blood Urea Nitrogen 21 mg/dL (7-17); Calcium 10.1 mg/dL (8.4-10.2); Carbon Dioxide 26 mmol/L (22-30); Chloride 103 mmol/L (98-107); Glucose 108 mg/dL (74-99); Potassium 4.4 mmol/L (3.5-5.1); Sodium 138 mmol/L (137-145); Total Bilirubin 0.6 mg/dL (0.2-1.3); Total Protein 7.6 g/dL (6.3-8.2)
--- NOTE | 2018-04-09 16:57 | CT ---
EXAMINATION TYPE: CT sinus wo con DATE OF EXAM: 04/09/2018 COMPARISON: HISTORY: HEADACHE FOR 6 WEEKS W/NAUSEA VOMITING. CT DLP: 1050.6 mGycm. Automated Exposure Control for Dose Reduction was Utilized. TECHNIQUE: CT scan of the sinuses is performed without contrast, axial images are obtained, coronal r eformatted images are also reviewed. FINDINGS: There is bilateral patency of the ostiomeatal complex. There is fairly normal development a nd aeration of the paranasal sinuses. I see no bony destructive process. Orbital margins are intact. Maxilla is intact. Nasal bone is intact. There is fairly normal aeration of the mastoid sinuses. Ther e is normal aeration of the middle ear cavity bilaterally. IMPRESSION: Normal CT scan of the paranasal sinuses. No evidence of sinusitis.
--- NOTE | 2018-04-09 16:59 | CT ---
EXAMINATION TYPE: CT brain wo con DATE OF EXAM: 04/09/2018 COMPARISON: None HISTORY: HEADACHE FOR 6 WEEKS W/NAUSEA VOMITING. CT DLP: 1050.6 mGycm Automated exposure control for dose reduction was used. FINDINGS: There is mild cerebral atrophy. There is no mass effect nor midline shift. There is no sign of intrac ranial hemorrhage. The calvarium is intact. IMPRESSION: NEGATIVE CT SCAN OF THE BRAIN.
[2018-04-09] MEDS ORDERED: ONDANSETRON 4 MG/2 ML VIAL IVP STA (17:45)
[2018-04-09] MEDS ORDERED: HYDROmorphone 1 MG/ML 1 ML SYRINGE IVP STA (17:45)
[2018-04-09] MEDS ORDERED: LIDOCAINE 1% INJ 10MG/ML (20 ML MDV) SQ ONE (17:46)
[2018-04-09] MEDS ORDERED: DEXAMETHASONE SOD PHOSPHATE 10 MG/ML 1 ML VIAL IV STA (18:23)
[2018-04-09 19:16] LABS: Glucose,CSF 64 mg/dL (40-70); Total Protein,CSF 43 mg/dL (12-60)
[2018-04-09 19:42] LABS: Appearance,CSF Clear; CSF Tube Number 4; Nucleated Cells, CSF 0 u/L (0-5); Red Blood Cell,CSF 1 u/L (0-10)
[2018-04-09] MEDS ORDERED: CYCLOBENZAPRINE 10MG STARTER 3 TAB BTL PO STA (19:59)
[2018-04-09 20:27] VITALS: BP 159/90; PULSE 84; TEMP 98
== END 2018-04-09 20:00 | disposition home or self-care (01) ==
LOC: EC 14:04
DX: R51 Headache (principal); R20.2 Paresthesia of skin; K21.9 Gastro-esophageal reflux disease without esophagitis; Z79.899 Other long term (current) drug therapy; Z88.8 Allergy status to other drugs, medicaments and biological substances
CPT/HCPCS: 36415; 84157; 80053; 82945; 85025; 89050; 87070; 87205; 70450; 70486; 99284; 96374; 96375 ×5; 96361; 96372; J1200; J1100; J2765; J2405; J2001; J1885; J1170

== ENCOUNTER → 2018-06-01 | Outpatient (CLI) | payer BC ==
[2018-06-01 14:15] LABS: Blood Urea Nitrogen 9 mg/dL (7-17)
--- NOTE | 2018-06-01 15:58 | MR ---
EXAMINATION TYPE: MR brain wo/w con DATE OF EXAM: 06/01/2018 COMPARISON: CT brain dated 04/09/2018 HISTORY: Migraines TECHNIQUE: Multiplanar, multisequence images of the brain and brainstem is performed without and with IV contras t, utilizing 9.5 mL intravenous . FINDINGS: Diffusion weighted images demonstrate no evidence of a recent infarct or other diffusion ab normality. There is no extra-axial fluid collection. There are few foci of T2/FLAIR hyperintensity w ithin the subcortical and periventricular white matter. The ventricular system and cisternal spaces a re normal in size and appearance. The brain volume is age appropriate. Midline structures demonstrate normal morphology. The craniocervical junction appears within normal limits. Post contrast images demonstrate no abnormal enhancement. The dural venous sinuses appear pa tent. The visualized sinuses are clear and the globes are intact. There is increased T2 signal surrou nding the optic nerves and optic nerve undulation. IMPRESSION: 1. Few foci of nonspecific white matter change in the periventricular and subcortical white matter. G iven the distribution these may be on the basis of microangiopathy or sequela of migraines. Debilitat ing diseases less likely. 2. No acute infarct, midline shift or mass effect. 3. Mild cerebral volume loss. 4. Mild mucosal thickening in the ethmoid and inferior maxillary sinuses. 5. Fluid seen around the optic nerves in the subarachnoid perineural space is a nonspecific finding b ut can be seen in increased intracranial pressure such as pseudotumor cerebri. Correlation with ophth almologic exam and lumbar puncture with opening and closing pressure if the clinical setting is appro priate could be performed.
--- NOTE | 2018-06-05 08:55 | MM ---
Reason for exam: screening (asymptomatic). Last mammogram was performed 1 year and 3 months ago. History: Patient is postmenopausal and has history of other cancer at age 26. Family history of breast cancer in sister at age 43 and breast cancer in maternal grandmother at age 44. Benign left mammotome panel of the left breast, November 19, 2011. Physical Findings: A clinical breast exam by your physician is recommended on an annual basis and results should be correlated with mammographic findings. MG Screening Mammo w CAD Bilateral CC and MLO view(s) were taken. XCCL view(s) were taken of the right breast. Prior study comparison: February 23, 2017, bilateral MG 3d screening mammo w/cad. February 23, 2016, bilateral MG 3d screening mammo w/cad. The breast tissue is heterogeneously dense. This may lower the sensitivity of mammography. No significant changes when compared with prior studies. ASSESSMENT: Benign, BI-RAD 2 RECOMMENDATION: Routine screening mammogram of both breasts in 1 year.
== END | disposition home or self-care (01) ==
LOC: RADMAMWWP 13:16
PROVIDERS: ATTEND Family Medicine
DX: Z12.31 Encounter for screening mammogram for malignant neoplasm of breast (principal); G93.2 Benign intracranial hypertension; G43.719 Chronic migraine without aura, intractable, without status migrainosus
CPT/HCPCS: 82565; 84520; 77067; 70553; 36415; A9585

== ENCOUNTER → 2018-06-19 | Outpatient (CLI) | payer BC ==
--- NOTE | 2018-06-19 12:09 | MR ---
MRI CERVICAL SPINE: CLINICAL HISTORY: Cervical disc degeneration C5-C6 level per order. Headaches with neck pain for 6 mo nths causing pain or weakness into left arm per patient. TECHNIQUE: Multiplanar, multisequence imaging of the cervical spine is performed without IV contrast. COMPARISON: Cervical spine x-ray June 30, 2012.. FINDINGS: Sagittal images of the cervical spine show the craniocervical junction to appear within nor mal limits. The cervical and upper thoracic spinal cord is normal in course, caliber, and signal. Th ere is slight grade 1 retrolisthesis of C5 on C6. Moderate disc space narrowing is present at this l evel otherwise the vertebral body and intravertebral disk heights are normal. The bone marrow signal intensity is within normal limits. Axial images show the C2-C3, C3-C4, and C4-C5 levels all to appear within normal limits. Axial images at the C5-C6 level show posterior spur disc complex effacing anterior thecal sac and cau sing mild right greater than left bilateral neural foraminal narrowing. Axial images at C6-C7 and C7-T1 level are felt within normal limits. There is T2 hyperintense 2.4 x 1.9 cm left thyroid nodule identified on axial image 11. IMPRESSION: 1. Spondylolisthesis and degenerative change C5-C6 level as detailed above. 2. A 2.4 cm left thyroid nodule noted, follow up thyroid ultrasound advised to better evaluate and ch aracterize entire thyroid gland.
== END ==
LOC: RADMRIMAIN 10:44
PROVIDERS: ATTEND Neurological Surgery
DX: M43.12 Spondylolisthesis, cervical region (principal); M47.812 Spondylosis without myelopathy or radiculopathy, cervical region
CPT/HCPCS: 72141

== ENCOUNTER → 2018-06-21 | Day surgery (SDC) | payer BC ==
[~2018-06-21] MED LIST changes: +DIAZEPAM 5 MG TAB PO STA; -LACTATED RINGERS 1,000 ML IV SCH
[2018-06-21 08:24] VITALS: TEMP 97.9
[2018-06-21 10:51] VITALS: RESP 16
[2018-06-21 11:09] LABS: Glucose,CSF 55 mg/dL (40-70)
[2018-06-21 11:22] LABS: Appearance,CSF Clear; CSF Tube Number 4; Red Blood Cell,CSF 0 u/L (0-10)
--- NOTE | 2018-06-21 11:22 | FL ---
EXAMINATION TYPE: FL guided lumbar puncture LP DATE OF EXAM: 06/21/2018 COMPARISON: NONE HISTORY: Benign intracranial hypertension. TECHNIQUE: Fluoroscopic assisted lumbar puncture for fluid analysis. A total of 3.03 minutes of fluor oscopic time was utilized during procedure. 0 spot images are saved. FINDINGS: Procedure fluoroscopic guided lumbar puncture was explained to the patient. Benefits, alter natives, and risks were discussed. An informed consent was then obtained. Overlying skin is cleansed with Betadine. Lidocaine is used as anesthetic static into the skin and hurtado bcutaneous tissue. Spinal needle was used for spinal canal access. After 2 unsuccessful attempts, lum bar spinal canal is finally accessed via a right paraspinal approach at L3-L4 level. There is good fl ow of clear CSF. Opening pressure is recorded as requested at 18 mmHg. After 4 vials are filled, need le was withdrawn. Vital signs are monitored before and during procedure. Afterwards patient is monitored in the hospita l for short stay after procedure. Vital signs remain stable. Patient left the hospital in satisfactor y and stable condition. IMPRESSION: Successful uncomplicated fluoroscopic assisted lumbar puncture for opening pressure and C SF analysis. Fluid sent to pathology for further evaluation.
[2018-06-21 11:23] LABS: Nucleated Cells, CSF 0 u/L (0-5)
[2018-06-21 11:25] LABS: Total Protein,CSF 43 mg/dL (12-60)
[2018-06-21 12:11] VITALS: BP 159/81; PULSE 59
== END ==
LOC: RADPROMAIN 07:58
PROVIDERS: ATTEND Neurological Surgery
DX: G93.2 Benign intracranial hypertension (principal)
CPT/HCPCS: 62270; 82945; 84157; 87070; 87205; 89050

== ENCOUNTER → 2018-06-30 | Outpatient (CLI) | payer BC ==
--- NOTE | 2018-06-30 12:07 | US ---
EXAMINATION TYPE: US thyroid st tissue head/neck DATE OF EXAM: 06/30/2018 COMPARISON: MRI cervical spine June 19, 2018 CLINICAL HISTORY: E04.1 Thyroid Nodule. GLAND SIZE: Right Lobe: 4.4 x 1.3 x 1.4 cm Overall Parenchyma: homogenous Left Lobe: 4.9 x 2.0 x 2.4 cm Overall Parenchyma: homogeneous Isthmus Thickness: 0.3 cm NODULES RIGHT: # of nodules measured on right: 0 LEFT: # of nodules measured on left: 1. 3.5 x 1.9 x X 2.7cm isoechoic mixed nodule at the mid pole with well-defined margins. This nod ule is taller than wide and shows intranodular vascularity. Prior seen on MRI ISTHMUS: # of nodules measured in the isthmus: 0 Bilateral neck scanned, no evidence of lymphadenopathy. There is homogeneous normal size thyroid with dominant left-sided solid nodule. IMPRESSION: There is confirmation of large left-sided thyroid nodule measures 3.5 cm. Total points 5. (Taller th an wide 3, isoechoic 1, mixed 1) [id number] moderately suspicious, ultrasound guided fine-needle aspir ation advised to further evaluate.
== END | disposition home or self-care (01) ==
LOC: RADUSWWP 10:57
PROVIDERS: ATTEND Family Medicine
DX: E04.1 Nontoxic single thyroid nodule (principal)
CPT/HCPCS: 76536

== ENCOUNTER → 2018-11-06 | Outpatient (CLI) | payer BC | END | disposition home or self-care (01) | LOC: LABWHC1 15:12 | PROVIDERS: ATTEND Internal Medicine | DX: R51 Headache (principal) | CPT/HCPCS: 36415; 85652; 86140 ==

== ENCOUNTER → 2018-11-21 | Outpatient (CLI) | payer BC ==
--- NOTE | 2018-11-22 03:35 | MR ---
EXAMINATION TYPE: MR venography head wo/w con DATE OF EXAM: 11/21/2018 COMPARISON: HISTORY: Headache CONTRAST: Standard multiplanar, multisequence MRI departmental protocol utilizing 9 mL intravenous Gadavist paige olinium contrast. FINDINGS: There is lack of venous contrast opacification involving the transverse and sigmoid sinus o n the left side. There is normal venous contrast opacification of the sagittal sinus and transverse a nd sigmoid sinus on the right side. There is normal contrast opacification of the right side jugular vein at the skull base. The old MR scan of 06/01/2018 is reviewed and there is normal contrast opacification of the left side transverse and sigmoid sinus. 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
--- NOTE | 2018-11-22 03:45 | MR ---
EXAMINATION TYPE: MR angio head wo con DATE OF EXAM: 11/21/2018 COMPARISON: None HISTORY: Headache TECHNIQUE: Time of flight images focusing on the [place] of [place] were performed without contrast. FINDINGS: There is arterial flow in the anterior middle and posterior cerebral arteries. There is art erial flow in the vertebrobasilar artery system. There is no definite flow seen in the posterior comm unicating arteries. There is no evidence of hemodynamic stenosis. I see no mass effect. There is no s ign of aneurysm or neovascularity. There is wide patency of the distal internal carotid arteries. IMPRESSION: Normal MR angiographic exam of the brain.
== END | disposition home or self-care (01) ==
LOC: RADMRIMAIN 06:03
PROVIDERS: ATTEND Internal Medicine
DX: J34.89 Other specified disorders of nose and nasal sinuses (principal); R51 Headache
CPT/HCPCS: 70544; 70546; A9585

== ENCOUNTER → 2019-12-04 | Outpatient (CLI) | payer BC ==
--- NOTE | 2019-12-04 12:01 | BD ---
EXAMINATION TYPE: Axial Bone Density DATE OF EXAM: 12/04/2019 COMPARISON: 02/23/2017 CLINICAL HISTORY: Height: 66 IN Weight: 228 LBS RISK FACTORS HISTORY OF: Family History of Osteoporosis: YES GRANDMOTHER (M) Active: YES Postmenopausal woman: AGE 46 MEDICATIONS: Additional Medications: MULTI VIT, CHRONIC MIGRAINE MEDS EXAM MEASUREMENTS: Bone mineral densitometry was performed using the [employer] System. Bone mineral density as measured about the Lumbar spine is: ----- L1-L4(G/cm2): 1.033 T Score Values are as follows: ----- L2: -1.2 ----- L3: -0.5 ----- L4: -1.7 ----- L1-L4: -1.2 Bone mineral density has: Decreased -2.9% since study of: 02/23/2017 Bone mineral density about the R hip (g/cm2): 0.899 Bone mineral density about the L hip (g/cm2): 0.810 T Score values are as follows: -----R Neck: -1.0 -----L Neck: -1.6 -----R Total: -0.6 -----L Total: -1.1 Bone mineral density has: Decreased -3.7% since study of: 02/23/2017 IMPRESSION: Osteopenia NOTE: T-SCORE=SD OF THE YOUNG ADULT MEAN.
--- NOTE | 2019-12-05 09:04 | MM ---
Reason for exam: screening (asymptomatic). Last mammogram was performed 1 year and 6 months ago. History: Patient is postmenopausal and has history of other cancer at age 26. Family history of breast cancer in sister at age 43 and breast cancer in maternal grandmother at age 44. Benign left mammotome panel of the left breast, November 19, 2011. Physical Findings: A clinical breast exam by your physician is recommended on an annual basis and results should be correlated with mammographic findings. MG Screening Mammo w CAD Bilateral CC and MLO view(s) were taken. Prior study comparison: June 01, 2018, bilateral MG screening mammo w CAD. February 23, 2017, bilateral MG 3d screening mammo w/cad. The breast tissue is heterogeneously dense. This may lower the sensitivity of mammography. There is no discrete abnormality. No significant changes when compared with prior studies. ASSESSMENT: Negative, BI-RAD 1 RECOMMENDATION: Routine screening mammogram of both breasts in 1 year.
== END | disposition home or self-care (01) ==
LOC: RADMAMWWP 10:05
PROVIDERS: ATTEND Family Medicine
DX: Z12.31 Encounter for screening mammogram for malignant neoplasm of breast (principal); M85.80 Other specified disorders of bone density and structure, unspecified site; Z78.0 Asymptomatic menopausal state
CPT/HCPCS: 77067; 77080

== ENCOUNTER → 2021-04-17 | Outpatient (CLI) | payer BC ==
--- NOTE | 2021-04-17 14:27 | US ---
EXAMINATION TYPE: US thyroid st tissue head/neck DATE OF EXAM: 04/17/2021 COMPARISON: US 2019 CLINICAL HISTORY: E04.1 nontoxic single thyroid nodule. Follow up thyroid nodule, history of thyroid FNA GLAND SIZE: Right Lobe: 5.3 x 1.3 x 1.6 cm Overall Parenchyma: homogenous Left Lobe: 5.3 x 2.1 x 2.7 cm Overall Parenchyma: homogeneous Isthmus Thickness: 0.3 cm NODULES RIGHT: # of nodules measured on right: 0 LEFT: # of nodules measured on left: 1 1. 3.3 X 2.0 x 2.5 cm, mid/lower, mixed cystic and solid, hypoechoic nodule, which is wider than ta ll, with smooth margins, without echogenic foci. TR 3 Prior size: 3.5 x 1.9 x 2.7 cm ISTHMUS: # of nodules measured in the isthmus: 0 Bilateral neck scanned, no evidence of lymphadenopathy. IMPRESSION: Mildly suspicious nodule. Biopsy is recommended. 2017 ACR TI-RADS LEVEL: TR-RADS 3 - Mildly Suspicious: Follow if > 1.5 cm, FNA if > 2.5 cm *Highest TI-RADS level nodule reported
--- NOTE | 2021-04-20 13:42 | MM ---
Reason for exam: screening (asymptomatic). Last mammogram was performed 1 year and 4 months ago. History: Patient is postmenopausal and has history of other cancer at age 46. Family history of breast cancer in sister at age 43 and breast cancer in maternal grandmother at age 44. Benign left mammotome panel of the left breast, November 19, 2011. Physical Findings: A clinical breast exam by your physician is recommended on an annual basis and results should be correlated with mammographic findings. MG 3D Screening Mammo W/Cad Bilateral CC, MLO, and XCCL view(s) were taken. Prior study comparison: December 04, 2019, bilateral MG screening mammo w CAD. June 01, 2018, bilateral MG screening mammo w CAD. The breast tissue is heterogeneously dense. This may lower the sensitivity of mammography. Previous mammotome biopsy in the left breast. No significant changes when compared with prior studies. ASSESSMENT: Benign, BI-RAD 2 RECOMMENDATION: Routine screening mammogram of both breasts in 1 year. Patient should continue monthly self breast exams. A negative report should not preclude additional follow up of suspicious palpable abnormalities.
== END | disposition home or self-care (01) ==
LOC: RADMAMWWP 07:36
PROVIDERS: ATTEND Family Medicine
DX: Z12.31 Encounter for screening mammogram for malignant neoplasm of breast (principal); E04.1 Nontoxic single thyroid nodule; Z80.3 Family history of malignant neoplasm of breast; Z78.0 Asymptomatic menopausal state
CPT/HCPCS: 76536; 77063; 77067

== ENCOUNTER → 2021-08-20 | Outpatient (CLI) | payer MEDICARE ==
[2021-08-20 18:30] LABS: ALT 16 U/L (8-44); AST 22 U/L (13-35); Albumin 4.3 g/dL (3.8-4.9); Albumin/Globulin Ratio 1.79 (1.60-3.17); Alkaline Phosphatase 88 U/L (41-126); Bilirubin, Conjugated <0.20 mg/dL (0.20-0.40); Globulin 2.4 g/dL (1.6-3.3); Total Protein 6.7 g/dL (6.2-8.2)
== END | disposition home or self-care (01) ==
LOC: LABWHC1 10:20
PROVIDERS: ATTEND Dermatology
DX: B35.1 Tinea unguium (principal)
CPT/HCPCS: 36415; 80076

== ENCOUNTER 2022-03-09 09:32 | Day surgery (SDC) | payer MEDICARE ==
[2022-03-05 10:58] VITALS: BMI 32.3
[~2022-03-09 09:32] MED LIST changes: -DIAZEPAM 5 MG TAB PO STA; +LACTATED RINGERS 1,000 ML IV SCH
[2022-03-09 10:15] VITALS: RESP 16; TEMP 97.2
[2022-03-09] MEDS ORDERED: PROPOFOL 10 MG/ML 20 ML VIAL IV ONE (11:07)
[2022-03-09] MEDS ORDERED: LACTATED RINGERS 1,000 ML IV ONE (11:09)
--- NOTE | 2022-03-09 11:21 | P.PCN ---
Date of Procedure: 03/09/22 Procedure(s) Performed: BRIEF HISTORY: Patient is a 66-year-old pleasant white female scheduled for an elective colonoscopy as a part of screening for colon cancer. PROCEDURE PERFORMED: Colonoscopy. PREOPERATIVE DIAGNOSIS: Screening for colon cancer. IV sedation per Anesthesia. PROCEDURE: After informed consent was obtained, the patient, was brought into the endoscopy unit. IV sedation was administered by Anesthesia under continuous monitoring. Digital rectal examination was normal. Initially the Olympus CF-160 flexible video colonoscope was then inserted in the rectum, gradually advanced into the cecum without any difficulty. Careful examination was performed as the scope was gradually being withdrawn. Ileocecal valve and the appendiceal orifice were visualized and appeared normal. Prep was excellent. Mucosa of the cecum, ascending colon, transverse colon, descending colon, sigmoid colon, and rectum appeared normal. Retroflexion was performed in the rectum and no lesions were seen. The patient tolerated the procedure well. IMPRESSION: Normal-appearing colon from rectum to cecum with no evidence of colorectal neoplasia. RECOMMENDATIONS: Findings of this examination were discussed with the patient as well as a family. She was advised to have a repeat screening colonoscopy in 10 years..
[2022-03-09 11:42] VITALS: BP 126/74; PULSE 68
== END 2022-03-09 12:07 | disposition home or self-care (01) ==
LOC: ORWHC2ENDO 09:32
PROVIDERS: ATTEND Internal Medicine Gastroenterology
DX: Z12.11 Encounter for screening for malignant neoplasm of colon (principal); I10 Essential (primary) hypertension; M19.90 Unspecified osteoarthritis, unspecified site; G43.909 Migraine, unspecified, not intractable, without status migrainosus; Z79.899 Other long term (current) drug therapy; Z88.2 Allergy status to sulfonamides
CPT/HCPCS: G0121; J2704; 45378

== ENCOUNTER → 2022-03-30 | Outpatient (CLI) | payer MEDICARE ==
--- NOTE | 2022-03-30 12:17 | XR ---
EXAMINATION TYPE: XR chest 2V DATE OF EXAM: 03/30/2022 COMPARISON: NONE TECHNIQUE: PA and lateral views submitted. HISTORY: Cough and possible pneumonia FINDINGS: Hyperinflation. Subsegmental changes right lung base and left retrocardiac region. Coarsened intersti tium. No pneumothorax or pleural effusion. Hypertrophic and degenerative change of the spine. IMPRESSION: 1. COPD with bibasilar atelectasis or infiltrate correlate clinically.
== END | disposition home or self-care (01) ==
LOC: RADXRMAIN 11:56
PROVIDERS: ATTEND Family Medicine
DX: J44.9 Chronic obstructive pulmonary disease, unspecified (principal); J18.9 Pneumonia, unspecified organism
CPT/HCPCS: 71046

== ENCOUNTER → 2023-04-26 | Outpatient (CLI) | payer MEDICARE ==
--- NOTE | 2023-04-26 10:11 | XR ---
EXAMINATION TYPE: XR chest 2V DATE OF EXAM: 04/26/2023 COMPARISON: 06/14/2022 TECHNIQUE: PA and lateral views submitted. HISTORY: COPD curvature of the spine. Biapical pleural thickening. Underlying COPD. FINDINGS: The lungs are clear and there is no pneumothorax, pleural effusion, or focal pneumonia. Heart size normal and no overt failure. Osseous structures demonstrate hypertrophic and degenerative changes of the spine. IMPRESSION: 1. No acute process.
--- NOTE | 2023-04-27 18:25 | BD ---
EXAMINATION TYPE: Axial Bone Density DATE OF EXAM: 04/26/2023 CLINICAL HISTORY: 67 years old Female. ICD-10 CODE: Z78.0 post menopausal Height: 66 Weight: 229.1 FRAX RISK QUESTIONS: Alcohol (3 or more units per day): no Family History (Parent hip fracture): no Glucocorticoids (More than 3mos): no History of Fracture in Adulthood: no Secondary Osteoporosis: 1. Type 1 Diabetes: no 2. Hyperthyroidism: no 3. Menopause before 45: no 4. Malnutrition: no 5. Chronic liver disease: no Rheumatoid Arthritis: no Current Tobacco Use: no RISK FACTORS HISTORY OF: Hip Fracture (Right/Left): no Spine Fracture: no History of Wrist Fracture: no Surgery to Spine/Hip(right/left)/Wrist (right/left): no Family History of Osteoporosis: Maternal Grandmother Active: no Diet low in dairy products/other sources of calcium: no Postmenopausal woman: yes Take estrogen and/or progesterone medications: no Lost more than 2 inches in height since high school: no Frequent falls: yes Poor Health: no Hyperparathyroidism: no Adrenal Insufficiency: no MEDICATIONS: Prednisone or other steroids: no Thyroid Medications: no Osteoporosis Medications: no Additional Medications: BP Meds, Depression Med, Multi Vit, Vit D, Calcium Additional History: EXAM MEASUREMENTS: Bone mineral densitometry was performed using the [employer] System. Bone mineral density as measured about the Lumbar spine is: ----- L1-L4(G/cm2): 1.087 T Score Values are as follows: ----- L1: -0.9 ----- L2: -0.9 ----- L3: -0.5 ----- L4: -1.0 ----- L1-L4: -0.8 Z Score Values are as follows: ----- L1: -0.4 ----- L2: -0.5 ----- L3: 0.0 ----- L4: -0.5 ----- L1-L4: -0.3 Bone mineral density has: increased 5.2 % since study of: 12/04/2019 Bone mineral density about the R hip (g/cm2): 0.947 Bone mineral density about the L hip (g/cm2): 0.930 T Score values are as follows: -----R Neck: -0.8 -----L Neck: -1.4 -----R Total: -0.5 -----L Total: -0.6 Z Score values are as follows: -----R Neck: 0.1 -----L Neck: -0.5 -----R Total: 0.0 -----L Total: -0.1 Bone mineral density has: increased 4.9 % since study of: 12/04/2019 FRAX%s: The graph provided illustrates a 8.5% chance for a major osteoporotic fx and a 0.9% chance fo r the hips probability for fx in 10 years time. IMPRESSION: Osteopenia (T Score between -2.5 and -1). There is slightly increased risk of fracture and the patient may be considered for treatment. Re-Screen 2-5 years. NOTE: T-SCORE=SD OF THE YOUNG ADULT MEAN.
== END | disposition home or self-care (01) ==
LOC: RADBDWWP 09:06
PROVIDERS: ATTEND Family Medicine
DX: M85.852 Other specified disorders of bone density and structure, left thigh (principal); J94.8 Other specified pleural conditions; J44.9 Chronic obstructive pulmonary disease, unspecified; Z78.0 Asymptomatic menopausal state
CPT/HCPCS: 71046; 77080

== ENCOUNTER → 2023-06-16 | Outpatient (CLI) | payer MEDICARE ==
--- NOTE | 2023-06-17 08:21 | MM ---
Reason for Exam: Screening (asymptomatic). Last screening mammogram was performed 12 month(s) ago. Patient History: Menarche at age 12. First Full-Term at age 26. Hysterectomy at age 46. Postmenopausal. Other cancer, age 46. 11/19/2011, Benign Core Biopsy on the left side. Maternal grandmother had breast cancer, age 44. Sister had breast cancer, age 43. Risk Values: Eileen 5 year model risk: 4.0%. NCI Lifetime model risk: 12.5%. Prior Study Comparison: 12/04/2019 Bilateral Screening Mammogram, [facility]. 04/17/2021 Bilateral Screening Mammogram, [facility]. 06/14/2022 Bilateral MG 3D screening mammo w/cad, [facility]. Tissue Density: The breasts are heterogeneously dense, which may obscure small masses. Findings: Analyzed By CAD. There is no suspicious group of microcalcifications or new suspicious mass in either breast. Asymmetric density left MLO view above the level of the nipple 4.7 cm from the nipple. Additional views recommended. Overall Assessment: Incomplete: need additional imaging evaluation, BI-RAD 0 Management: Diagnostic Mammogram of the left breast. . Patient should continue monthly self-breast exams. A clinical breast exam by your physician is recommended on an annual basis. This exam should not preclude additional follow-up of suspicious palpable abnormalities. Note on Eileen scores and lifetime risk: 1. A Eileen score greater than 3% is considered moderate risk. If this is the case, consider specialist referral to assess eligibility for a risk reducing agent. 2. If overall lifetime risk for the development of breast cancer is 20% or higher, the patient may qualify for future screening with alternating mammogram and breast MRI. Electronically signed and approved by: Randy Remy M.D. Radiologis
== END | disposition home or self-care (01) ==
LOC: RADMAMWWP 08:32
PROVIDERS: ATTEND Family Medicine
DX: Z12.31 Encounter for screening mammogram for malignant neoplasm of breast (principal); Z80.3 Family history of malignant neoplasm of breast; Z78.0 Asymptomatic menopausal state
CPT/HCPCS: 77063; 77067

== ENCOUNTER → 2023-06-20 | Outpatient (CLI) | payer MEDICARE ==
--- NOTE | 2023-06-20 13:45 | MM ---
Reason for Exam: Additional evaluation requested from abnormal screening. Last screening mammogram was performed less than 1 month ago. Patient History: Menarche at age 12. First Full-Term at age 26. Hysterectomy at age 46. Postmenopausal. Other cancer, age 46. 11/19/2011, Benign Core Biopsy on the left side. Maternal grandmother had breast cancer, age 44. Sister had breast cancer, age 43. Risk Values: Eileen 5 year model risk: 4.0%. NCI Lifetime model risk: 12.5%. Prior Study Comparison: 04/17/2021 Bilateral Screening Mammogram, [facility]. 06/14/2022 Bilateral MG 3D screening mammo w/cad, [facility]. 06/16/2023 Bilateral MG 3D screening mammo w/cad, [facility]. Tissue Density: Left: The breasts are heterogeneously dense, which may obscure small masses. Findings: Analyzed By CAD. Questioned area of central asymmetric density in the anterior to middle depth on the MLO view does not persist on spot 3-D MLO or 3-D lateral views. Findings compatible with superimposition shadow. No significant change from prior exams. Overall Assessment: Benign, BI-RAD 2 Management: Screening Mammogram of both breasts in 1 year. See note below in regards to patient's increased 5 year Eileen score. Results were given to the patient verbally at the time of exam. Patient should continue monthly self-breast exams. A clinical breast exam by your physician is recommended on an annual basis. This exam should not preclude additional follow-up of suspicious palpable abnormalities. Note on Eileen scores and lifetime risk: 1. A Eileen score greater than 3% is considered moderate risk. If this is the case, consider specialist referral to assess eligibility for a risk reducing agent. 2. If overall lifetime risk for the development of breast cancer is 20% or higher, the patient may qualify for future screening with alternating mammogram and breast MRI. Electronically signed and approved by: Gian Springer M.D. Radiologist
== END | disposition home or self-care (01) ==
LOC: RADMAMWWP 13:23
PROVIDERS: ATTEND Family Medicine
DX: R92.332 Mammographic heterogeneous density, left breast (principal); Z78.0 Asymptomatic menopausal state; Z80.3 Family history of malignant neoplasm of breast
CPT/HCPCS: 77065; G0279; 77061

== ENCOUNTER → 2024-05-11 | Outpatient (CLI) | payer MEDICARE ==
--- NOTE | 2024-05-11 10:32 | XR ---
EXAMINATION TYPE: XR chest 2V DATE OF EXAM: 05/11/2024 10:26 AM COMPARISON: Chest radiographs from 04/26/2023 TECHNIQUE: XR chest 2V Frontal and lateral views of the chest. CLINICAL INDICATION:Female, 68 years old with history of J44.1 COPD; FINDINGS: Lungs/Pleura: There is no evidence of pleural effusion, focal consolidation, or pneumothorax. Mild h yperinflation. Pulmonary vascularity: Unremarkable. Heart/mediastinum: Cardiomediastinal silhouette is unremarkable. Musculoskeletal: No acute osseous pathology. IMPRESSION: 1. No acute cardiopulmonary disease/process. 2. Hyperinflation which can be seen with COPD versus asthma. [facility], , 05/11/2024 10:30 AM
== END | disposition home or self-care (01) ==
LOC: RADXRMAIN 10:12
PROVIDERS: ATTEND Family Medicine
DX: J44.1 Chronic obstructive pulmonary disease with (acute) exacerbation (principal)
CPT/HCPCS: 71046

== ENCOUNTER → 2024-06-26 | Outpatient (CLI) | payer MEDICARE ==
--- NOTE | 2024-06-26 07:34 | MM ---
Reason for Exam: Screening (asymptomatic). Last screening mammogram was performed 12 month(s) ago. Patient History: Menarche at age 12. First Full-Term at age 26. Hysterectomy at age 46. Postmenopausal. Other cancer, age 46. 11/19/2011, Benign Core Biopsy on the left side. Maternal grandmother had breast cancer, age 44. Sister had breast cancer, age 43. Risk Values: Eileen 5 year model risk: 4.0%. NCI Lifetime model risk: 11.9%. Prior Study Comparison: 06/14/2022 Bilateral MG 3D screening mammo w/cad, [facility]. 06/16/2023 Bilateral MG 3D screening mammo w/cad, [facility]. 06/20/2023 Left MG 3D work up w/cad , [facility]. Tissue Density: The breasts are heterogeneously dense, which may obscure small masses. Findings: Analyzed By CAD. Biopsy clip in the left breast is redemonstrated. Benign-appearing bilateral axillary lymph nodes are again seen. There is no suspicious new group of microcalcifications or new suspicious mass in either breast. Overall Assessment: Benign, BI-RAD 2 Management: Screening Mammogram of both breasts in 1 year. . Patient should continue monthly self-breast exams. A clinical breast exam by your physician is recommended on an annual basis. This exam should not preclude additional follow-up of suspicious palpable abnormalities. Note on Eileen scores and lifetime risk: 1. A Eileen score greater than 3% is considered moderate risk. If this is the case, consider specialist referral to assess eligibility for a risk reducing agent. 2. If overall lifetime risk for the development of breast cancer is 20% or higher, the patient may qualify for future screening with alternating mammogram and breast MRI. [facility], , 06/26/2024 7:31 AM. Electronically signed and approved by: Abdullahi Sharma M.D.
== END | disposition home or self-care (01) ==
LOC: RADMAMWWP 06:56
PROVIDERS: ATTEND Obstetrics & Gynecology
DX: Z12.31 Encounter for screening mammogram for malignant neoplasm of breast (principal); R92.333 Mammographic heterogeneous density, bilateral breasts; Z78.0 Asymptomatic menopausal state; Z80.3 Family history of malignant neoplasm of breast
CPT/HCPCS: 77063; 77067